=== PATIENT | female | born 1990 | race Caucasian/White ===

== ENCOUNTER 2022-09-20 11:17 | Emergency (ER) | payer OTHER ==
[2022-09-20 11:33] VITALS: BP 121/57; PULSE 101; RESP 18; TEMP 98.2; BMI 21.9
[2022-09-20] MEDS ORDERED: ACETAMINOPHEN 500 MG TABLET (FP) PO ONE (12:33)
[2022-09-20] MEDS ORDERED: ACETAMINOPHEN 500 MG TABLET (FP) ONE (12:41)
[2022-09-20] MEDS ORDERED: IBUPROFEN 600 MG TABLET (FP) PO ONE ×2 (12:45→12:48)
[2022-09-20] MEDS ORDERED: LIDOCAINE 5% TOPICAL PATCH TP ONE (12:46)
[2022-09-20] MEDS ORDERED: LIDOCAINE 5% TOPICAL PATCH ONE (12:48)
[2022-09-20] MEDS ORDERED: LIDOCAINE PATCH REMOVAL MC SCH (22:00)
== END 2022-09-20 15:59 | disposition home or self-care (01) ==
LOC: JERFT 11:17
DX: S43.101A Unspecified dislocation of right acromioclavicular joint, initial encounter (principal); M25.511 Pain in right shoulder; W18.30XA Fall on same level, unspecified, initial encounter
CPT/HCPCS: 73030-TC-RT-FY; 99283-25